=== PATIENT | female | born 1980 | race Caucasian/White ===

== ENCOUNTER 2022-10-05 13:24 | Emergency (ER) | payer SELFPAY ==
[2022-10-05] MEDS ORDERED: Morphine 2 MG/ML VIAL ONE (14:29)
[2022-10-05] MEDS ORDERED: predniSONE 20 MG TAB ONE (14:30)
[2022-10-05] MEDS ORDERED: Dexamethasone 10 MG/ML VIAL ONE (14:30)
[2022-10-05] MEDS ORDERED: Morphine 4 MG/ML VIAL ONE (14:30)
[2022-10-05] MEDS ORDERED: HYDROcodone/Acetaminophen 10/325 mg Tablet ONE (15:33)
== END 2022-10-05 15:35 | disposition home or self-care (01) ==
LOC: BURERS 13:24
DX: M54.41 Lumbago with sciatica, right side (principal); M54.2 Cervicalgia; G89.29 Other chronic pain; I10 Essential (primary) hypertension; F17.210 Nicotine dependence, cigarettes, uncomplicated
CPT/HCPCS: 71046; 72040; 96372; J1100; J2270; J2272; J7512